=== PATIENT | male | born 2000 | race Two or more races ===

== ENCOUNTER 2021-03-05 01:25 | Emergency (ER) | payer MEDICAID ==
[~2021-03-05] VITALS: Ht 165.1 cm; Wt 53.3 kg
[2021-03-05 03:09] VITALS: BP 118/73
== END 2021-03-05 03:03 | disposition home or self-care (01) ==
LOC: ER 01:26
DX: Z02.89 Encounter for other administrative examinations (principal); F41.9 Anxiety disorder, unspecified
CPT/HCPCS: 99283

== ENCOUNTER 2023-11-28 04:14 | Emergency (ER) | payer MEDICAID ==
[~2023-11-28] VITALS: Ht 165.1 cm; Wt 56.8 kg
[2023-11-28 04:22] VITALS: BP 117/78; PULSE 105; TEMP 98; O2SAT 97
[2023-11-28 05:26] VITALS: RESP 16
[2023-11-28 05:34] LABS: URINE AMPHETAMINE SCREEN NEGATIVE (Neg); URINE BARBITUATE SCREEN NEGATIVE (Neg); URINE BENZODIAZEPINES SCREEN NEGATIVE (Neg); URINE CANNABINOID SCREEN NEGATIVE (Neg); URINE COCAINE SCREEN NEGATIVE (Neg); URINE METHADONE SCREEN NEGATIVE (Neg); URINE OPIATE SCREEN NEGATIVE (Neg); URINE PHENCYCLIDINE SCREEN NEGATIVE (Neg)
[2023-11-28 05:41] LABS: BILIRUBIN,URINE NEGATIVE (Neg); CLARITY,URINE CLEAR (Clear); COLOR,URINE YELLOW (Yellow); GLUCOSE, URINE NEGATIVE (Neg); KETONES,URINE TRACE mg/dl (Neg); LEUKOCYTE ESTERASE ,URINE NEGATIVE (Neg); NITRITES, URINE NEGATIVE (Neg); OCCULT BLOOD,URINE TRACE-INTACT (Neg); PROTEIN,URINE NEGATIVE (Neg); UROBILINOGEN,URINE 0.2 E.U/dL (0.2-1.0)
[2023-11-28 05:42] LABS: ALBUMIN 4.5 G/DL (3.4-5.0); ANION GAP 13 (8-16); BLOOD UREA NITROGEN 14 MG/DL (7-18); BUN/CREATININE RATIO 15.2 (10.0-20.0); CHLORIDE 108 MMOL/L (99-107); CREATININE 0.92 MG/DL (0.60-1.10); ETHANOL 101 MG/DL (<10); GLUCOSE 99 MG/DL (70-104); POTASSIUM 4.3 MMOL/L (3.5-5.1); SODIUM 148 MMOL/L (135-145); THYROID STIMULATING HORMONE 2.16 ulU/ml (0.34-4.50); TOTAL CARBON DIOXIDE 27.4 MMOL/L (24-32); eCRCL 101 ML/MIN; eGFR > 90 ML/MIN
[2023-11-28 05:43] LABS: UA COLLECTION TYPE NON-SPECIFIED
[2023-11-28] MEDS ORDERED: NO HOME MEDS (05:43)
[2023-11-28 05:44] LABS: BASOPHILS % (AUTO) 0.3 % (0-1); EOSINOPHILS # (AUTO) 0.1 X10'3 (0-0.9); EOSINOPHILS % (AUTO) 0.8 % (0-6); LYMPHOCYTES # (AUTO) 2.1 X10'3 (1.1-4.8); LYMPHOCYTES % (AUTO) 17.7 % (21-51); MEAN CORPUSCULAR VOLUME 88.4 FL (78-98); MEAN PLATELET VOLUME 9.2 FL (7.4-10.4); MONOCYTES # (AUTO) 0.8 X10'3 (0-0.9); MONOCYTES % (AUTO) 6.3 % (2-12); NEUTROPHILS # (AUTO) 8.9 X10'3 (1.8-7.7); NEUTROPHILS % (AUTO) 74.9 % (42-75); PLATELET COUNT 243 X10'3 (140-440); RED BLOOD COUNT 5.32 X10'6 (4.70-6.10); WHITE BLOOD COUNT 11.9 X10'3 (4.5-11.0)
[2023-11-28 06:10] LABS: BACTERIA,URINE NONE SEEN /HPF (Neg); MUCUS STRANDS NONE SEEN /LPF (Neg); RBC,URINE 0-2 /HPF (0-2); SQUAMOUS EPITHELIAL CELL,UR NONE SEEN /LPF (FEW); WBC,URINE 0-4 /HPF (0-4)
== END 2023-11-28 12:38 | disposition home or self-care (01) ==
LOC: ER 04:14
DX: F10.129 Alcohol abuse with intoxication, unspecified (principal); Z20.822 Contact with and (suspected) exposure to COVID-19; R45.851 Suicidal ideations; Y90.9 Presence of alcohol in blood, level not specified
CPT/HCPCS: 36415; 80048; 80305; 80320; 81001; 84443; 85025; 87811; 99285

== ENCOUNTER → 2024-05-18 | Emergency (ER) | payer MEDICAID ==
[~2024-05-18] VITALS: Ht 162.6 cm; Wt 72.7 kg
[~2024-05-18] MED LIST: NO HOME MEDS
[2024-05-18 06:17] VITALS: BP 136/72; PULSE 98; RESP 18; TEMP 98.9; O2SAT 100
== END ==
LOC: ER 04:45
DX: S62.336A Displaced fracture of neck of fifth metacarpal bone, right hand, initial encounter for closed fracture (principal); Y04.8XXA Assault by other bodily force, initial encounter; Y93.89 Activity, other specified; Y92.89 Other specified places as the place of occurrence of the external cause; Y99.8 Other external cause status
CPT/HCPCS: 29125; 73130; 99283; A6449